=== PATIENT | female | born 1945 | race Two or more races ===

== ENCOUNTER 2016-09-17 19:37 | Emergency (ER) | payer OTHER ==
[~2016-09-17] VITALS: Ht 160 cm; Wt 77.1 kg
[~2016-09-17 19:37] MED LIST: AMLO10TA2; LEVO100T81 PO; LIS20T PO; LOR05T PO; MET50T PO; METF500T; NOR10T PO; OMEP20CA5 PO; SIMV-13; TRIA75TA66 PO
[2016-09-17 20:35] LABS: Basophils # (auto) 0 uL; Basophils % (auto) 0.2 % (0.0-2.0); DEFINITIVE VIEW TRANSMISSION; Eosinophils # (auto) 0 uL; Eosinophils % (auto) 0.3 % (0.0-7.0); Hematocrit 38.2 % (36.0-46.0); Hemoglobin 12.1 g/dL (12.2-16.2); Lymphocytes # (auto) 1.2 uL; Lymphocytes % (auto) 14.7 % (10.0-50.0); Mean Corpuscular Hemoglobin 26.3 pg (28.0-32.0); Mean Corpuscular Hgb Conc. 31.6 g/dL (32.0-36.0); Mean Corpuscular Volume 83.2 fL (80.0-100.0); Mean Platelet Volume 10.7 fL (7.4-10.4); Monocytes # (auto) 0.4 uL; Monocytes % (auto) 4.6 % (0.0-12.0); Neutrophils # (auto) 6.6 uL; Neutrophils % (auto) 80.2 % (37.0-80.0); Platelet Count (auto) 202 10^3/uL (140-450); Red Cell Distribution Width 13.7 % (11.6-16.0); White Blood Cell 8.2 10^3/uL (4.4-10.8)
[2016-09-17] MEDS ORDERED: SODIUM CHLORIDE 0.9% 1,000 ML IV ONE (20:45)
[2016-09-17 21:04] LABS: Albumin 3.3 g/dL (3.4-5.0); Alkaline Phosphatase 104 U/L (45-117); Anion Gap 12 (5-15); Aspartate Aminotransferase 21 U/L (15-37); BUN/Creatinine Ratio 12.9; Bilirubin, Total 0.5 mg/dL (0.2-1.0); Blood Urea Nitrogen 18 mg/dL (7-18); Carbon Dioxide 22 mmol/L (21-32); Chloride 106 mmol/L (98-107); GFR African American 47 mL/min; GFR Non-African American 39 mL/min; Glucose 368 mg/dL (74-106); Magnesium 1.8 mg/dL (1.6-2.6); Potassium 3.8 mmol/L (3.5-5.1); Sodium 140 mmol/L (136-145); Total Protein 6.8 g/dL (6.4-8.2)
[2016-09-17] MEDS ORDERED: InsuLIN REG 1unit/0.01ml Soln (100units/ml) IV ONE (23:45)
[2016-09-18 02:34] VITALS: BP 136/54
== END 2016-09-18 04:23 | disposition home or self-care (01) ==
LOC: EDBD 19:37 → ER 19:37
DX: F12.929 Cannabis use, unspecified with intoxication, unspecified (principal); E11.65 Type 2 diabetes mellitus with hyperglycemia; I10 Essential (primary) hypertension; M19.90 Unspecified osteoarthritis, unspecified site; E07.9 Disorder of thyroid, unspecified; M54.9 Dorsalgia, unspecified; G89.29 Other chronic pain; R41.82 Altered mental status, unspecified; Z87.891 Personal history of nicotine dependence
CPT/HCPCS: 36415; 70450; 80053; 80307; 82962; 83735; 84484; 85025; 93005; 96361; 96374; 99285; J1815

== ENCOUNTER 2017-01-06 17:37 | Inpatient (IN) | payer OTHER ==
[~2017-01-06] VITALS: Ht 175.3 cm; Wt 68.6 kg
[~2017-01-06 17:37] MED LIST changes: -OMEP20CA5 PO; +OMEP20CA74 PO
[2017-01-06] MEDS ORDERED: SODIUM CHLORIDE 0.9% 500 ML IVB ONE (18:08)
[2017-01-06 18:59] LABS: Basophils # (auto) 0.1 uL; CONDITION Y; Eosinophils # (auto) 0.1 uL; Eosinophils % (auto) 1.2 % (0.0-7.0); Hematocrit 35.2 % (36.0-46.0); Hemoglobin 11.4 g/dL (12.2-16.2); Lymphocytes # (auto) 1.6 uL; Lymphocytes % (auto) 17.1 % (10.0-50.0); Mean Corpuscular Hemoglobin 27.2 pg (28.0-32.0); Mean Corpuscular Hgb Conc. 32.3 g/dL (32.0-36.0); Mean Corpuscular Volume 84.2 fL (80.0-100.0); Mean Platelet Volume 11.8 fL (7.4-10.4); Monocytes # (auto) 0.6 uL; Monocytes % (auto) 6.9 % (0.0-12.0); Neutrophils # (auto) 6.9 uL; Neutrophils % (auto) 73.8 % (37.0-80.0); Platelet Count (auto) 265 10^3/uL (140-450); Red Cell Distribution Width 15.1 % (11.6-16.0); White Blood Cell 9.3 10^3/uL (4.4-10.8)
[2017-01-06 19:29] LABS: INR 0.96 (0.9-1.15); Partial Thromboplastin Time 25.2 sec (22.64-33.71); Prothrombin Time 10.5 sec (9.37-12.3)
[2017-01-06 19:40] LABS: Albumin 2.5 g/dL (3.4-5.0); BUN/Creatinine Ratio 17.3; Calcium 8.3 mg/dL (8.5-10.1); Magnesium 2.3 mg/dL (1.6-2.6); Potassium 3.8 mmol/L (3.5-5.1)
[2017-01-06 19:45] LABS: Bilirubin, Total 0.7 mg/dL (0.2-1.0); Total Protein 6.3 g/dL (6.4-8.2)
[2017-01-06] MEDS ORDERED: SODIUM CHLORIDE 0.9% 1,000 ML IV SCH (22:32)
[2017-01-06] MEDS ORDERED: DEXTROSE (50%) 50ML SYRG IV PRN (22:45)
[2017-01-06] MEDS ORDERED: NITROGLYCERIN 0.4 MG SL TAB SL PRN (22:45)
[2017-01-06] MEDS ORDERED: MORPHINE SULF INJ 2 MG/ML SYRINGE 1ML IV PRN ×2 (22:45)
[2017-01-06] MEDS ORDERED: hydrALAZINE HCL 20 MG/ML VL IV PRN (22:45)
[2017-01-06] MEDS ORDERED: ONDANSETRON HCL 4 MG/2 ML VIAL IV PRN (22:45)
[2017-01-07] VITALS (7 sets, daily range): BP systolic 145–162; BP diastolic 60–100
[2017-01-07] MEDS: ACCU-CHEK COMFORT CURVE STRIP VI SCH ×4 (00:18→18:00)
[2017-01-07] MEDS: InsuLIN REG 1unit/0.01ml Soln (100units/ml) SC SCH ×4 (06:00→18:00)
[2017-01-07 06:12] LABS: Basophils # (auto) 0.1 uL; Basophils % (auto) 0.5 % (0.0-2.0); CONDITION Y; Eosinophils # (auto) 0.1 uL; Eosinophils % (auto) 0.5 % (0.0-7.0); Hematocrit 36.7 % (36.0-46.0); Hemoglobin 12.4 g/dL (12.2-16.2); Lymphocytes # (auto) 1.7 uL; Lymphocytes % (auto) 15.8 % (10.0-50.0); Mean Corpuscular Hemoglobin 27.7 pg (28.0-32.0); Mean Corpuscular Hgb Conc. 33.7 g/dL (32.0-36.0); Mean Corpuscular Volume 82.1 fL (80.0-100.0); Mean Platelet Volume 11.8 fL (7.4-10.4); Monocytes # (auto) 0.8 uL; Monocytes % (auto) 7.1 % (0.0-12.0); Neutrophils # (auto) 8.2 uL; Neutrophils % (auto) 76.1 % (37.0-80.0); Platelet Count (auto) 230 10^3/uL (140-450); Red Cell Distribution Width 14.6 % (11.6-16.0); White Blood Cell 10.8 10^3/uL (4.4-10.8)
[2017-01-07] MEDS: SOD CHL 0.45% 1,000 ML IV SCH ×2 (09:30→22:41)
[2017-01-07] MEDS ORDERED: ENOXAPARIN SOD 40 MG/0.4 ML SYRINGE SC SCH (10:00)
[2017-01-07] MEDS ORDERED: TRIAMTERENE/HCTZ 75/50MG TABLET PO SCH (10:00)
[2017-01-07] MEDS ORDERED: OMEPRAZOLE 20MG/10ML ORAL SUSP PO SCH (10:00)
[2017-01-07] MEDS: LISINOPRIL 20 MG TAB PO SCH (10:00)
[2017-01-07] MEDS ORDERED: LEVOTHYROXINE SODIUM 100 MCG TAB PO SCH (10:00)
[2017-01-07] MEDS: METOPROLOL TARTRATE 50 MG TAB PO SCH (10:00)
[2017-01-07] MEDS: amLODIPine BESYLATE 5 MG TAB PO SCH (10:00)
[2017-01-07] MEDS: LEVOTHYROXINE SODIUM 100 MCG/5 ML INJ IV SCH (17:20)
[2017-01-07] MEDS ORDERED: SODIUM CHLORIDE 0.9% 1,000 ML IV ONE (22:32)
[2017-01-07] MEDS: ATORVASTATIN 20 MG TAB PO SCH (22:41)
[2017-01-07] MEDS: ENOXAPARIN SOD 60 MG/0.6 ML SYRINGE SC SCH (22:41)
[2017-01-08 05:00] VITALS: BP 146/72
[2017-01-08] MEDS: ACETAMINOPHEN 325 MG TAB PO PRN ×2 (05:15→11:24)
[2017-01-08] MEDS: InsuLIN REG 1unit/0.01ml Soln (100units/ml) SC SCH ×4 (05:35→17:37)
[2017-01-08] MEDS: ACCU-CHEK COMFORT CURVE STRIP VI SCH ×4 (05:35→17:37)
[2017-01-08 07:00] LABS: Basophils # (auto) 0 uL; Basophils % (auto) 0.3 % (0.0-2.0); CONDITION Y; Eosinophils # (auto) 0.1 uL; Eosinophils % (auto) 0.8 % (0.0-7.0); Hematocrit 37.9 % (36.0-46.0); Hemoglobin 12.3 g/dL (12.2-16.2); Lymphocytes # (auto) 1.8 uL; Lymphocytes % (auto) 17.7 % (10.0-50.0); Mean Corpuscular Hemoglobin 27.5 pg (28.0-32.0); Mean Corpuscular Hgb Conc. 32.3 g/dL (32.0-36.0); Mean Corpuscular Volume 85.3 fL (80.0-100.0); Mean Platelet Volume 11.1 fL (7.4-10.4); Monocytes # (auto) 0.6 uL; Neutrophils # (auto) 7.5 uL; Neutrophils % (auto) 75.2 % (37.0-80.0); Platelet Count (auto) 303 10^3/uL (140-450); Red Cell Distribution Width 15.3 % (11.6-16.0); White Blood Cell 9.9 10^3/uL (4.4-10.8)
[2017-01-08 07:34] LABS: BUN/Creatinine Ratio 20.3; Potassium 3.7 mmol/L (3.5-5.1)
[2017-01-08 07:50] LABS: Calcium 8.7 mg/dL (8.5-10.1)
[2017-01-08 08:00] VITALS: BP 168/69
[2017-01-08 08:43] VITALS: BP 168/69
[2017-01-08] MEDS: LEVOTHYROXINE SODIUM 100 MCG/5 ML INJ IV SCH (09:52)
[2017-01-08] MEDS: METOPROLOL TARTRATE 50 MG TAB PO SCH (09:52)
[2017-01-08] MEDS: PANTOPRAZOLE 40 MG/10 ML VIAL IV SCH (09:52)
[2017-01-08] MEDS: amLODIPine BESYLATE 5 MG TAB PO SCH (09:53)
[2017-01-08] MEDS: LISINOPRIL 20 MG TAB PO SCH (09:53)
[2017-01-08] MEDS: ENOXAPARIN SOD 60 MG/0.6 ML SYRINGE SC SCH ×2 (09:53→21:51)
[2017-01-08] MEDS: SOD CHL 0.45% 1,000 ML IV SCH (11:54)
[2017-01-08 12:08] LABS: Urine Bilirubin Negative (Negative); Urine Blood Negative /uL (Negative); Urine Color Yellow (Yellow); Urine Glucose 2+ mg/dL (Normal); Urine Ketone 2+ (Negative); Urine Mucus FEW (None Seen); Urine Nitrite Negative (Negative); Urine RBC 1 /hpf (0 - 4); Urine Squamous Epithelial Cell FEW /hpf (<5); Urine pH 5.5 (5.0-8.0)
[2017-01-08 12:53] VITALS: BP 152/73
[2017-01-08] MEDS ORDERED: CYCLOBENZAPRINE HCL 10 MG TAB PO PRN (14:15)
[2017-01-08] MEDS: HYDROcodone-ACET 5/325MG TAB PO PRN ×2 (14:17→21:59)
[2017-01-08 16:33] VITALS: BP 130/54
[2017-01-08 21:22] VITALS: BP 165/67
[2017-01-08] MEDS: ATORVASTATIN 20 MG TAB PO SCH (21:59)
[2017-01-09] MEDS: ACCU-CHEK COMFORT CURVE STRIP VI SCH ×3 (00:15→11:35)
[2017-01-09] MEDS: SOD CHL 0.45% 1,000 ML IV SCH (01:30)
[2017-01-09 05:22] VITALS: BP 160/60
[2017-01-09] MEDS: InsuLIN REG 1unit/0.01ml Soln (100units/ml) SC SCH ×3 (05:30→11:49)
[2017-01-09 06:25] LABS: Basophils # (auto) 0.1 uL; Basophils % (auto) 0.6 % (0.0-2.0); CONDITION Y; Eosinophils # (auto) 0.1 uL; Eosinophils % (auto) 0.9 % (0.0-7.0); Hematocrit 32.9 % (36.0-46.0); Lymphocytes # (auto) 2.2 uL; Lymphocytes % (auto) 22.5 % (10.0-50.0); Mean Corpuscular Hemoglobin 27.7 pg (28.0-32.0); Mean Corpuscular Hgb Conc. 33.5 g/dL (32.0-36.0); Mean Corpuscular Volume 82.6 fL (80.0-100.0); Mean Platelet Volume 11.3 fL (7.4-10.4); Monocytes # (auto) 0.7 uL; Monocytes % (auto) 7.1 % (0.0-12.0); Neutrophils # (auto) 6.8 uL; Neutrophils % (auto) 68.9 % (37.0-80.0); Platelet Count (auto) 265 10^3/uL (140-450); Red Cell Distribution Width 15.1 % (11.6-16.0); White Blood Cell 9.9 10^3/uL (4.4-10.8)
[2017-01-09 06:54] LABS: Potassium 3.2 mmol/L (3.5-5.1)
[2017-01-09 07:03] LABS: BUN/Creatinine Ratio 13.3; Calcium 8.3 mg/dL (8.5-10.1)
[2017-01-09 08:00] VITALS: BP 157/54
[2017-01-09 08:54] VITALS: BP_SYST 127; BP_SYST 157; BP_DIAS 54; BP_DIAS 67
[2017-01-09] MEDS ORDERED: POTASSIUM CHL 20 Meq TABLET PO ONE ×2 (09:15→18:00)
[2017-01-09] MEDS: PANTOPRAZOLE 40 MG/10 ML VIAL IV SCH (09:43)
[2017-01-09] MEDS: LEVOTHYROXINE SODIUM 100 MCG/5 ML INJ IV SCH (09:43)
[2017-01-09] MEDS: METOPROLOL TARTRATE 50 MG TAB PO SCH (09:43)
[2017-01-09] MEDS: HYDROcodone-ACET 5/325MG TAB PO PRN (09:44)
[2017-01-09] MEDS: ENOXAPARIN SOD 60 MG/0.6 ML SYRINGE SC SCH (09:44)
[2017-01-09] MEDS: amLODIPine BESYLATE 5 MG TAB PO SCH (09:44)
[2017-01-09] MEDS: LISINOPRIL 20 MG TAB PO SCH (09:44)
[2017-01-09 10:38] VITALS: BP 157/54
[2017-01-09 13:12] VITALS: BP 124/55
== END 2017-01-09 14:20 | DRG 64 ==
LOC: EDBD 17:37 → EDUNIT# 17:37 → ER 17:43 → TELE 17:44 → TELE-WESTW 01-07 01:10
PROVIDERS: ADMIT Hospitalist; ATTEND Hospitalist
DX: I63.9 Cerebral infarction, unspecified (principal); G93.41 Metabolic encephalopathy; E11.9 Type 2 diabetes mellitus without complications; I69.351 Hemiplegia and hemiparesis following cerebral infarction affecting right dominant side; G81.94 Hemiplegia, unspecified affecting left nondominant side; D64.9 Anemia, unspecified; I10 Essential (primary) hypertension; E04.1 Nontoxic single thyroid nodule; E03.9 Hypothyroidism, unspecified; E78.5 Hyperlipidemia, unspecified; I25.10 Atherosclerotic heart disease of native coronary artery without angina pectoris; E87.6 Hypokalemia; I65.23 Occlusion and stenosis of bilateral carotid arteries; M19.90 Unspecified osteoarthritis, unspecified site; Z66 Do not resuscitate; Z82.3 Family history of stroke; Z82.49 Family history of ischemic heart disease and other diseases of the circulatory system; Z83.3 Family history of diabetes mellitus; I25.2 Old myocardial infarction; Z82.0 Family history of epilepsy and other diseases of the nervous system; Z87.891 Personal history of nicotine dependence; Z80.9 Family history of malignant neoplasm, unspecified; Z79.84 Long term (current) use of oral hypoglycemic drugs
CPT/HCPCS: 36415; 70450; 71010; 80048; 80053; 81001; 82962; 83605; 83735; 84443; 84484; 85025; 85610; 85730; 87040; 87081; 87086; 87088; 87186; 92610; 93005; 94761; 95819; 96360; C9113; J1815; J3490